=== PATIENT | female | born 1965 | race Caucasian/White ===

== ENCOUNTER 2022-04-02 20:44 | Emergency (ER) | payer MEDICAID ==
[2022-04-02] MEDS ORDERED: Acetaminophen/HYDROcodone 325-5 MG Tab PO ONE (20:45)
[2022-04-02] MEDS ORDERED: Ondansetron 4 MG Tab.DIS PO ONE (20:45)
[2022-04-02] MEDS ORDERED: Cephalexin 250 MG Cap PO ONE (22:26)
[2022-04-02] MEDS ORDERED: Phenazopyridine 95 MG Tab ONE (22:35)
[2022-04-03] MEDS ORDERED: Phenazopyridine 95 MG Tab PO ONE (22:27)
== END 2022-04-02 22:52 | disposition home or self-care (01) ==
LOC: FB.ED 20:44
DX: N39.0 Urinary tract infection, site not specified (principal); R31.9 Hematuria, unspecified; I25.10 Atherosclerotic heart disease of native coronary artery without angina pectoris; E78.00 Pure hypercholesterolemia, unspecified; I10 Essential (primary) hypertension; J44.9 Chronic obstructive pulmonary disease, unspecified; E11.9 Type 2 diabetes mellitus without complications; Z88.0 Allergy status to penicillin; Z79.899 Other long term (current) drug therapy; Z79.84 Long term (current) use of oral hypoglycemic drugs; Z79.82 Long term (current) use of aspirin; Z72.0 Tobacco use
CPT/HCPCS: 81001; 87086; 87088; 87186; 99284; A9270; Q0162; 99282

== ENCOUNTER 2023-12-15 00:59 | Emergency (ER) | payer BC, MEDICAID ==
[2023-12-15] MEDS ORDERED: Azithromycin 250 MG Tab PO ONE (01:00)
[2023-12-15] MEDS: Ibuprofen 800 MG Tab PO ONE (02:19)
[2023-12-15] MEDS: Acetaminophen 500 MG Tab PO ONE (02:20)
== END 2023-12-15 02:26 | disposition home or self-care (01) ==
LOC: FB.ED 00:59
DX: J01.90 Acute sinusitis, unspecified (principal); I10 Essential (primary) hypertension; I25.10 Atherosclerotic heart disease of native coronary artery without angina pectoris; E78.00 Pure hypercholesterolemia, unspecified; J44.9 Chronic obstructive pulmonary disease, unspecified; K21.9 Gastro-esophageal reflux disease without esophagitis; E11.40 Type 2 diabetes mellitus with diabetic neuropathy, unspecified; E66.9 Obesity, unspecified; F17.210 Nicotine dependence, cigarettes, uncomplicated; Z95.1 Presence of aortocoronary bypass graft; Z79.899 Other long term (current) drug therapy; Z88.0 Allergy status to penicillin; Z79.84 Long term (current) use of oral hypoglycemic drugs
CPT/HCPCS: 99283; A9270

== ENCOUNTER 2024-05-16 22:42 | Emergency (ER) | payer BC | END 2024-05-16 23:52 | disposition home or self-care (01) | LOC: FB.ED 22:42 | DX: R22.41 Localized swelling, mass and lump, right lower limb (principal); I10 Essential (primary) hypertension; I25.10 Atherosclerotic heart disease of native coronary artery without angina pectoris; E78.00 Pure hypercholesterolemia, unspecified; J44.9 Chronic obstructive pulmonary disease, unspecified; E11.40 Type 2 diabetes mellitus with diabetic neuropathy, unspecified; E66.9 Obesity, unspecified; Z95.5 Presence of coronary angioplasty implant and graft; Z90.49 Acquired absence of other specified parts of digestive tract; Z79.899 Other long term (current) drug therapy; Z79.82 Long term (current) use of aspirin; Z79.84 Long term (current) use of oral hypoglycemic drugs; Z88.0 Allergy status to penicillin | CPT/HCPCS: 73700-RT; 99283 ==